=== PATIENT | female | born 1960 | race Asian ===

== ENCOUNTER 2016-06-02 22:13 | Emergency (ER) | payer OTHER ==
[2016-06-02 22:44] VITALS: BP 121/75; PULSE 66; TEMP 97.5; BMI 21.7
[2016-06-03 00:34] LABS: URINE APPEARANCE CLEAR; URINE BILIRUBIN NEGATIVE (NEGATIVE); URINE COLOR STRAW; URINE GLUCOSE (UA) NEGATIVE (NEGATIVE); URINE KETONE NEGATIVE (NEGATIVE); URINE NITRITE NEGATIVE (NEGATIVE); URINE PROTEIN NEGATIVE (NEGATIVE); URINE UROBILINOGEN NEGATIVE E.U./dl (0.2-1.0)
[2016-06-03 00:37] LABS: URINE BLOOD 3+ (NEGATIVE); URINE LEUK ESTERASE 2+ (NEGATIVE)
[2016-06-03 00:40] LABS: URINE BACTERIA RARE /hpf (NONE SEEN); URINE HYALINE CAST 1 /lpf; URINE RBC <1 /hpf (0-3); URINE WBC 42 /hpf (3-5)
--- NOTE | 2016-06-03 00:52 | PDOC ---
History of Present Illness - General Chief Complaint: Hematuria Stated Complaint: BLOOD IN URINE Time Seen by Provider: 06/02/16 22:55 - History of Present Illness Initial Comments: 06/03/16 00:52 CHIEF COMPLAINT: urinary frequency, blood in urine HISTORY OF PRESENT ILLNESS: 56 yo F with no PMH presents to ED with urinary discomfort x 2 weeks. Patient reports urinary frequency and blood "when I wiped " today. 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 She denies fever, chills, nausea, vomiting, diarrhea, rectal bleeding. No recent travel or sick contacts. PAST MEDICAL HISTORY: Denies past medical history FAMILY HISTORY: Denies SOCIAL HISTORY: Occupation: massage therapist. Denies tobacco, alcohol, illicit drug use. SURGICAL HISTORY: Denies ALLERGIES: PCN REVIEW OF SYSTEMS General/Constitutional: Denies fever or chills. Denies weakness, weight change. Cardiovascular: Denies chest pain or shortness of breath. Respiratory: Denies cough, wheezing, or hemoptysis. Gastrointestinal: Denies nausea, vomiting, diarrhea or constipation. Denies rectal bleeding. Genitourinary: Urinary frequency, hematuria. Musculoskeletal: Chronic lower back pain. PHYSICAL EXAM General Appearance: Well-appearing, appropriately dressed. No apparent distress , no intoxication. HEENT: EOMI, PERRLA. No conjunctival pallor. No photophobia, scleral icterus. Respiratory/Chest: Lungs CTAB. Cardiovascular: RRR. S1, S2. Gastrointestinal/Abdominal: Normal bowel sounds. Abdomen soft, non-distended. No tenderness or rebound tenderness. No organomegaly, pulsatile mass, guarding , hernia, hepatomegaly, splenomegaly. Musculoskeletal/Extremities: Mild R CVA tenderness. Normal inspection. FROM of all extremities, normal capillary refill. Pelvis Stable. No CVA tenderness. No tenderness to extremities, pedal edema, swelling, erythema or deformity. Integumentary: Appropriate color, dry, warm. No cyanosis, erythema, jaundice or rash Neurologic: director toxicology II-XII intact. Fully oriented, alert. Appropriate mood/affect. Motor strength 5/5. No appreciable EOM palsy, facial droop or sensory deficit. 06/03/16 01:17 Past History - Past Medical History Allergies/Adverse Reactions: Allergies Allergy/AdvReac Type Severity Reaction Status Date / Time Penicillins Allergy Swelling Verified 06/02/16 22:31 RAW ONION Allergy Mild Vomiting Uncoded 06/02/16 22:31 Home Medications: Ambulatory Orders Cephalexin [Keflex] 500 mg PO BID #20 capsule 06/03/16 Hypercholesterolemia: Yes Suicide Attempt (Hx): No - Immunization History Immunization Up to Date: Yes - Psycho/Social/Smoking Cessation Hx Anxiety: No Suicidal Ideation: No Smoking Status: No Smoking History: Current every day smoker Number of Cigarettes Smoked Daily: 6 Information on smoking cessation initiated: No Hx Alcohol Use: No Drug/Substance Use Hx: No Substance Use Type: None *Physical Exam - Vital Signs Last Vital Signs Temp Pulse Resp BP Pulse Ox 97.5 F L 66 14 121/75 98 06/02/16 22:31 06/02/16 22:31 06/02/16 22:31 06/02/16 22:31 06/02/16 22:31 ED Treatment Course - ADDITIONAL ORDERS Additional order review: Laboratory Results 06/02/16 23:50 Urine Color Straw Urine Appearance Clear Urine pH 6.0 Ur Specific [place] 1.003 Urine Protein Negative Urine Glucose (UA) Negative Urine Ketones Negative Urine Blood 3+ H Urine Nitrite Negative Urine Bilirubin Negative Urine Urobilinogen Negative Ur Leukocyte Esterase 2+ H Urine RBC <1 Urine WBC 42 Ur Epithelial Cells Rare Urine Bacteria Rare Hyaline Casts 1 Urine HCG, Qual Negative Medical Decision Making - Medical Decision Making 06/03/16 01:50 56 yo F with no PMH presents to ED with 2 weeks of urinary discomfort and new onset hematuria x 1 day. -UA, UCx, Upreg UA positive for UTI. Will treat with Keflex 500 mg bid. Advised patient to take medication as prescribed and f/u with urologist if symptoms persist or recur. Advised patient of signs and symptoms for return to ER; patient verbalized understanding and agrees to plan. *DC/Admit/Observation/Transfer Diagnosis at time of Disposition: Urinary tract infection Qualifiers: Urinary tract infection type: acute cystitis Hematuria presence: with hematuria Qualified Code(s): N30.01 - Acute cystitis with hematuria - Discharge Dispostion Admit: No - Prescriptions Prescriptions: Cephalexin [Keflex] 500 mg PO BID #20 capsule - Patient Instructions Printed Discharge Instructions: DI for Urinary Tract Infection (UTI) Additional Instructions: Please take medication as prescribed and follow up with your primary care doctor. If your symptoms persist or you have recurrent urinary tract infections , please follow up with urology. If you experience fever, nausea, vomiting, diarrhea, or any new or worsening symptoms, please return to the ER.
== END 2016-06-03 01:22 | disposition home or self-care (01) ==
LOC: JER 22:13
DX: N30.01 Acute cystitis with hematuria (principal)
CPT/HCPCS: 81003; 81015; 84703; 87086; 99281-25